=== PATIENT | female | born 1955 | race Caucasian/White ===

== ENCOUNTER → 2017-01-09 | Outpatient (CLI) | payer BC ==
[~2017-01-09] VITALS: Ht 152.4 cm; Wt 56.7 kg
[~2017-01-09] MED LIST: VITAMIN B12 100MCG PO
== END | disposition home or self-care (01) ==
LOC: AMB 11:01
DX: Z12.11 Encounter for screening for malignant neoplasm of colon (principal); D12.2 Benign neoplasm of ascending colon; K63.5 Polyp of colon; K64.8 Other hemorrhoids; D64.9 Anemia, unspecified
CPT/HCPCS: 88305; J2250